=== PATIENT | male | born 2005 | race Caucasian/White ===

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

== ENCOUNTER 2023-02-04 22:27 | Emergency (ER) | payer OTHER ==
[~2023-02-04] VITALS: Ht 165.1 cm; Wt 56.2 kg
[~2023-02-04 22:27] MED LIST changes: +AMOX500C25 PO
[2023-02-04 23:16] VITALS: BP 121/62
--- NOTE | 2023-02-04 23:38 | NUR ---
Jennifer hurtado in [facility] - 02/05/23 at 0053 by MEDDARLING D/Sung MCCAULEY. PRESCRIBED CRISSYRO
[2023-02-05 00:13] LABS: APPEARANCE,URINE CLEAR (CLEAR); BILIRUBIN,URINE NEGATIVE (NEGATIVE); BLOOD, URINE NEGATIVE (NEGATIVE); COLOR,URINE YELLOW (YELLOW); LEUKOCYTE ESTERASE ,URINE NEGATIVE (NEGATIVE); NITRITE, URINE NEGATIVE (NEGATIVE); PH,URINE 5.5 (5.0-9.0); UGLUCOSE NEGATIVE (NEGATIVE)
--- NOTE | 2023-02-05 00:52 | NUR ---
PT TAKEN TO RADIOLOGY
--- NOTE | 2023-02-05 01:00 | NUR ---
PT RETURN TO [facility]
--- NOTE | 2023-02-05 01:05 | NUR ---
Dr. Kirkland examining patient.
[2023-02-05 01:08] LABS: BASOPHILS # (AUTO) 0.1 K/uL (0.00-0.22); BASOPHILS % (AUTO) 1.1 % (0.0-2.0); EOSINOPHILS # (AUTO) 0.2 K/uL (0-0.4); EOSINOPHILS % (AUTO) 2.4 % (0.0-4.0); HEMATOCRIT 42.9 % (36-52); HEMOGLOBIN 14.6 g/dL (12.0-18.0); LYMPHOCYTES # (AUTO) 3.8 K/uL (2.0-11.5); LYMPHOCYTES % (AUTO) 43.2 % (20.5-51.1); MEAN CORPUSCULAR HEMOGLOBIN 28 pg (27-31); MEAN CORPUSCULAR HGB CONC 34 g/dL (33-37); MEAN CORPUSCULAR VOLUME 82.7 fL (80-94); MONOCYTES # (AUTO) 0.7 K/uL (0.8-1.0); NEUTROPHILS % (AUTO) 45.3 % (42.2-75.2); PLATELET COUNT (AUTO) 238 K/uL (140-450); RED BLOOD CELL COUNT(AUTO) 5.19 MIL/uL (4.20-6.10); RED CELL DISTRIBUTION WIDTH 13.6 % (11.6-13.7); WHITE BLOOD COUNT (AUTO) 8.9 K/uL (4.5-11.0)
[2023-02-05 01:21] LABS: ANION GAP 10.4 (8-16); CARBON DIOXIDE 30.4 mmol/L (21-32); POTASSIUM 3.8 mmol/L (3.5-5.1); TOTAL BILIRUBIN 0.4 mg/dL (0.0-1.0)
--- NOTE | 2023-02-05 01:49 | NUR ---
SASCHA BALDWIN FOR AN EXAMANATION
[2023-02-05] MEDS ORDERED: CIPR500T4 PO (01:54)
[2023-02-05 01:58] VITALS: BP 121/62
--- NOTE | 2023-02-05 01:58 | NUR ---
D/C GARRICK. PRESCRIBED CIPRO.
== END 2023-02-05 01:58 | disposition home or self-care (01) ==
LOC: MED 22:27
DX: A08.4 Viral intestinal infection, unspecified (principal); R19.7 Diarrhea, unspecified; J45.909 Unspecified asthma, uncomplicated; Z79.899 Other long term (current) drug therapy
CPT/HCPCS: 36415; 80053; 81003; 85025; 99284

== ENCOUNTER 2023-03-16 15:59 | Emergency (ER) | payer OTHER ==
[~2023-03-16] VITALS: Ht 165.1 cm; Wt 56.7 kg
[~2023-03-16 15:59] MED LIST changes: +CIPR500T4 PO
[2023-03-16 16:18] VITALS: BP 140/75
[2023-03-16] MEDS ORDERED: ALUMINUM HYD/MAG/SIMETHICONE 30 ML UDC PO ONE (17:05)
[2023-03-16] MEDS ORDERED: ALUMINUM HYD/MAG/SIMETHICONE 30 ML UDC ONE (18:26)
[2023-03-16] MEDS ORDERED: ATA25 PO (18:27)
[2023-03-16] MEDS ORDERED: IBUP-2213 PO (18:27)
[2023-03-16] MEDS ORDERED: MAG355OR2 PO (18:31)
--- NOTE | 2023-03-16 18:47 | NUR ---
Patient discharged with v/s stable. Written and verbal after care instructions given and explained. Patient alert, oriented and verbalized understanding of instructions. Ambulatory with steady gait. All questions addressed prior to discharge. ID band removed. Patient advised to follow up with PMD. Rx of maalox, atarax given. Patient educated on indication of medication including possible reaction and side effects. Opportunity to ask questions provided and answered.
== END 2023-03-16 18:46 | disposition home or self-care (01) ==
LOC: MED 15:59
DX: R07.89 Other chest pain (principal); R10.13 Epigastric pain; J45.909 Unspecified asthma, uncomplicated; F41.9 Anxiety disorder, unspecified; K21.9 Gastro-esophageal reflux disease without esophagitis; Z98.890 Other specified postprocedural states; Z87.891 Personal history of nicotine dependence; Z79.899 Other long term (current) drug therapy; Z79.1 Long term (current) use of non-steroidal anti-inflammatories (NSAID); Z79.2 Long term (current) use of antibiotics
CPT/HCPCS: 93005; 99283

== ENCOUNTER 2023-06-05 09:57 | Emergency (ER) | payer OTHER ==
[~2023-06-05] VITALS: Ht 162.6 cm; Wt 54.4 kg
[~2023-06-05 09:57] MED LIST changes: +MAG355OR2 PO
[2023-06-05 10:33] VITALS: BP 131/81; PULSE 86; RESP 18; TEMP 98; O2SAT 98
[2023-06-05] MEDS ORDERED: CEPH-588 PO (12:42)
[2023-06-05] MEDS ORDERED: LORA10TA19 PO (12:42)
[2023-06-05] MEDS ORDERED: BENZ1GEL49 TP (12:42)
[2023-06-05] MEDS ORDERED: FLONAS NS (12:42)
== END 2023-06-05 12:45 | disposition home or self-care (01) ==
LOC: MED 09:57
DX: L73.9 Follicular disorder, unspecified (principal); J30.9 Allergic rhinitis, unspecified; Z79.899 Other long term (current) drug therapy; Z79.2 Long term (current) use of antibiotics; Z79.1 Long term (current) use of non-steroidal anti-inflammatories (NSAID)
CPT/HCPCS: 99283

== ENCOUNTER 2023-07-14 00:30 | Emergency (ER) | payer OTHER ==
[~2023-07-14] VITALS: Ht 165.1 cm; Wt 57.6 kg
[~2023-07-14 00:30] MED LIST changes: +BENZ1GEL49 TP; +CEPH-588 PO; +FLONAS NS; +LORA10TA19 PO
[2023-07-14 00:37] VITALS: BP 134/67; PULSE 77; RESP 16; TEMP 97.4; O2SAT 100
[2023-07-14 03:10] VITALS: BP 124/87; PULSE 56; RESP 17; TEMP 98.4; O2SAT 98
[2023-07-14] MEDS ORDERED: ONDANSETRON 4 MG TAB PO ONE (03:10)
[2023-07-14] MEDS ORDERED: DICYCLOMINE HCL LIQUID 20 MG, ALUMINUM HYD/MAG/SIMETHICONE 30 ML, LIDOCAINE VISCOUS 2% ... PO ONE ×3 (03:10)
[2023-07-14] MEDS ORDERED: LOPERAMIDE 2 MG CAP PO ONE (03:10)
[2023-07-14] MEDS ORDERED: ALUMINUM HYD/MAG/SIMETHICONE 30 ML UDC ONE (03:24)
[2023-07-14] MEDS ORDERED: DICYCLOMINE HCL LIQUID 10 MG/5 ML UDC ONE (03:24)
[2023-07-14 05:08] LABS: APPEARANCE,URINE CLEAR (CLEAR); BILIRUBIN,URINE NEGATIVE (NEGATIVE); BLOOD, URINE NEGATIVE (NEGATIVE); COLOR,URINE YELLOW (YELLOW); LEUKOCYTE ESTERASE ,URINE NEGATIVE (NEGATIVE); NITRITE, URINE NEGATIVE (NEGATIVE); PROTEIN,URINE TRACE (NEGATIVE); UGLUCOSE NEGATIVE (NEGATIVE); UROBILINOGEN,URINE 0.2 EU/dL (0.2 - 1)
[2023-07-14] MEDS ORDERED: MAG-27 PO (05:17)
== END 2023-07-14 05:32 | disposition home or self-care (01) ==
LOC: MED 00:30
DX: R11.10 Vomiting, unspecified (principal); R19.7 Diarrhea, unspecified; R10.9 Unspecified abdominal pain; J45.909 Unspecified asthma, uncomplicated; Z79.899 Other long term (current) drug therapy
CPT/HCPCS: 81003; 99284; Q0162

== ENCOUNTER 2023-09-16 17:33 | Emergency (ER) | payer OTHER ==
[~2023-09-16] VITALS: Ht 165.1 cm; Wt 58.1 kg
[~2023-09-16 17:33] MED LIST changes: +MAG-27 PO
[2023-09-16 17:35] VITALS: BP 147/85; PULSE 78; RESP 18; TEMP 96; O2SAT 100
[2023-09-16 18:41] LABS: FLU A ANTIGEN negative (NEGATIVE); FLU B ANTIGEN NEGATIVE (NEGATIVE)
[2023-09-16 19:04] LABS: APPEARANCE,URINE CLEAR (CLEAR); BILIRUBIN,URINE NEGATIVE (NEGATIVE); BLOOD, URINE NEGATIVE (NEGATIVE); COLOR,URINE YELLOW (YELLOW); LEUKOCYTE ESTERASE ,URINE NEGATIVE (NEGATIVE); NITRITE, URINE NEGATIVE (NEGATIVE); PROTEIN,URINE 2+ (NEGATIVE); UGLUCOSE NEGATIVE (NEGATIVE); UROBILINOGEN,URINE 0.2 EU/dL (0.2 - 1)
[2023-09-16] MEDS ORDERED: DOXY-487 PO (19:21)
[2023-09-16] MEDS ORDERED: cefTRIAXone 500 MG in LIDOCAINE MPF 1% 1 ML IM ONE (19:25)
[2023-09-16] MEDS ORDERED: LIDOCAINE MPF 1% 5 ML ONE (19:36)
[2023-09-16] MEDS ORDERED: cefTRIAXone 500 MG VIAL ONE (19:36)
[2023-09-16 19:40] LABS: BACTERIA,URINE 0-2 /HPF (None Seen); MUCUS,URINE 1+ /LPF (None Seen); RBC,URINE 0-5 /HPF (0-5); SQUAMOUS EPITHELIAL CELL,UR 0-3 (FEW) /LPF (0-3 (FEW)); WBC,URINE 0-5 /HPF (0-5)
== END 2023-09-16 20:28 | disposition home or self-care (01) ==
LOC: MED 17:33
DX: J02.8 Acute pharyngitis due to other specified organisms (principal); Z20.822 Contact with and (suspected) exposure to COVID-19; B97.89 Other viral agents as the cause of diseases classified elsewhere; J45.909 Unspecified asthma, uncomplicated; Z79.899 Other long term (current) drug therapy
CPT/HCPCS: 81001; 86592; 86703; 87081; 87426; 87491; 87804; 96372; 99283; J0696; J2001